=== PATIENT | male | born 1975 | race Two or more races ===

== ENCOUNTER 2018-06-24 01:15 | Emergency (ER) | payer OTHER ==
[~2018-06-24] VITALS: Ht 185.4 cm; Wt 96.2 kg
--- NOTE | 2018-06-24 01:25 | NUR ---
SUJATA RA FROM HOME. AAOX4. PT APPEARS ANXIOUS. BREATHING IS EVEN AND UNLABORED. AMBULATORY. C/O CHEST TIGHTNESS AND SOB WHICH HE REPORTED THAT WOKE HIM UP FROM HIS SLEEP. PT REPORTS TINGLING SENSATIONS WITH HIS FINGER. PT ALSO REPORTED THAT HE FELL D/T FEELING WEAK. DENIES HITTING HIS HEAD. PT REPORTED THAT HE CONSUMMED 10MG OF EDIBLE MARIJUANA @8PM. PT TO ER BED 4. MD AT BEDSIDE FOR EVAL, ORDERS RECEIVED.
[2018-06-24] MEDS ORDERED: LORAZEPAM 1 MG TABLET PO ONE (01:30)
[2018-06-24] MEDS ORDERED: ALBUTEROL FS 2.5 MG/3 ML VIAL.NEB NEB ONE (01:30)
--- NOTE | 2018-06-24 01:30 | NUR ---
EKG AT BEDSIDE
[2018-06-24 01:55] LABS: BASOPHILS % (AUTO) 0.5 % (0.0-2.0); EOSINOPHILS % (AUTO) 1.2 % (0.0-6.0); HEMATOCRIT 38 % (39-51); HEMOGLOBIN 13.2 g/dL (13.5-17.5); LYMPHOCYTES % (AUTO) 37.5 % (20.0-44.0); MEAN CORPUSCULAR HGB CONC 35 g/dl (31.0-36.0); MEAN CORPUSCULAR VOLUME 89 fL (80-96); MONOCYTES # (AUTO) 0.4 /CMM (0.1-1.30); MONOCYTES % (AUTO) 8.2 % (2.0-12.0); NEUTROPHILS # (AUTO) 2.8 /CMM (1.8-8.9); NEUTROPHILS % (AUTO) 52.6 % (43.0-81.0); PLATELET COUNT (AUTO) 216 /CMM (150-450); RED BLOOD CELL COUNT(AUTO) 4.29 MIL/uL (4.5-6.0); WHITE BLOOD COUNT (AUTO) 5.3 K/uL (4.3-11.0)
--- NOTE | 2018-06-24 01:55 | NUR ---
IV LINE OBTAINED ON R AC 18G. BLOOD DRAWN GIVEN TO VIDEO OPERATOR AT BEDSIDE
[2018-06-24] MEDS ORDERED: IV NS 0.9% 1,000 ML BAG IV ONE (02:00)
[2018-06-24 02:04] LABS: CALCIUM, SERUM 8.9 mg/dL (8.5-10.1); POTASSIUM 3.3 mmol/L (3.5-5.1)
[2018-06-24] MEDS ORDERED: ALBUTEROL FS 2.5 MG/3 ML VIAL.NEB ONE (02:15)
[2018-06-24] MEDS ORDERED: LORAZEPAM INJ 2 MG/ML VIAL ONE (02:26)
[2018-06-24] MEDS ORDERED: LORAZEPAM INJ 2 MG/ML VIAL IV ONE (02:30)
--- NOTE | 2018-06-24 02:31 | NUR ---
PT IN BED AWAKE AND ALERT. NAD. PT STATES THAT THERE IS NO FEELING OF CHEST TIGHTNESS AT THIS TIME.
[2018-06-24 02:54] VITALS: BP 138/79
--- NOTE | 2018-06-24 02:58 | NUR ---
Patient discharged to home in stable condition. Written and verbal after care instructions given. Patient verbalizes understanding of instruction.IV removed. Catheter intact and site benign. Pressure and 4x4 applied to site. No bleeding noted. Pt ambulatory with a steady gait
== END 2018-06-24 02:58 | disposition home or self-care (01) ==
LOC: ER 01:16
DX: R55 Syncope and collapse (principal); F41.9 Anxiety disorder, unspecified; R06.02 Shortness of breath
CPT/HCPCS: 36415; 71045; 80048; 85025; 93005; 94640; 96361; 96374; 99284; J2060; J7030